=== PATIENT | male | born 1980 | race American Indian/Alaskan Native ===

== ENCOUNTER 2021-03-25 07:28 | Emergency (ER) | payer MEDICARE ==
[2021-03-25 07:40] VITALS: BP 135/83
[2021-03-25 08:30] LABS: Bilirubin,Urine MOD (Negative); Blood,Urine NEG (Negative); Color,Urine Amber (Yellow); Mucus,Urine 2+ /HPF
[2021-03-25 08:39] LABS: Ictotest,Urine Negative (Negative)
[2021-03-25 08:45] LABS: Basophils % (Auto) 0.6 % (0.0-1.8); Eosinophils # (Auto) 0.1 K/mm3 (0.0-0.4); Eosinophils % (Auto) 1.4 % (0.0-4.3); Hematocrit 43.2 % (35.5-45.6); Hemoglobin 14.5 gm/dl (11.8-15.2); Lymphocytes # (Auto) 1.2 K/mm3 (1.2-5.4); Lymphocytes % (Auto) 20.8 % (13.4-35.0); Mean Corpuscular HGB Conc 34 % (32-34); Mean Corpuscular Volume 93 fl (84-94); Monocytes # (Auto) 0.6 K/mm3 (0.0-0.8); Monocytes % (Auto) 10.5 % (0.0-7.3); Platelet Count 149 K/mm3 (140-440); Red Blood Count 4.66 M/mm3 (3.65-5.03); Red Cell Distribution Width 14.1 % (13.2-15.2)
[2021-03-25 09:03] LABS: BUN/Creatinine Ratio 10; Blood Urea Nitrogen 10 mg/dL (9-20); Calcium 8.9 mg/dL (8.4-10.2); Hemolysis Index 1
[2021-03-25 09:03] LABS: Amphetamine Screen,Urine Negative; Benzodiazepines Screen,Urine Negative; Methadone Screen,Urine Negative; Opiate Screen,Urine Negative
[2021-03-25 09:19] LABS: Cannabinoid Screen,Urine Positive; Cocaine Screen,Urine Positive
== END 2021-03-25 13:45 | disposition home or self-care (01) ==
LOC: ED 07:28
DX: R45.851 Suicidal ideations (principal); Z20.822 Contact with and (suspected) exposure to COVID-19; F20.9 Schizophrenia, unspecified; F17.200 Nicotine dependence, unspecified, uncomplicated; Z98.890 Other specified postprocedural states
CPT/HCPCS: 36415; 80048; 80307; 81001; 85025; 99284; U0003; 80320; G0480

== ENCOUNTER 2022-06-15 04:57 | Emergency (ER) | payer MEDICARE ==
[2022-06-15 06:12] LABS: Basophils % (Auto) 0.4 % (0.0-1.8); Eosinophils % (Auto) 0.3 % (0.0-4.3); Hematocrit 42.6 % (35.5-45.6); Hemoglobin 13.9 gm/dl (11.8-15.2); Lymphocytes # (Auto) 1.9 K/mm3 (1.2-5.4); Mean Corpuscular HGB Conc 33 % (32-34); Mean Corpuscular Volume 94 fl (84-94); Monocytes # (Auto) 0.6 K/mm3 (0.0-0.8); Monocytes % (Auto) 8.9 % (0.0-7.3); Platelet Count 195 K/mm3 (140-440); Red Blood Count 4.54 M/mm3 (3.65-5.03); Red Cell Distribution Width 14.4 % (13.2-15.2)
[2022-06-15 06:31] LABS: Blood Urea Nitrogen 18 mg/dL (9-20); Calcium 9.5 mg/dL (8.4-10.2); Hemolysis Index 12
[2022-06-15 06:32] LABS: BUN/Creatinine Ratio 26
[2022-06-15 06:43] LABS: Amphetamine Screen,Urine Negative; Benzodiazepines Screen,Urine Negative; Cannabinoid Screen,Urine Negative; Methadone Screen,Urine Negative; Opiate Screen,Urine Negative
[2022-06-15 06:51] LABS: Bacteria,Urine 1+ /HPF (Negative); Mucus,Urine FEW /HPF
[2022-06-15 06:52] LABS: Color,Urine Yellow (Yellow)
[2022-06-15 06:56] LABS: Cocaine Screen,Urine Positive
--- NOTE | 2022-06-15 12:27 | Consultation ---
History of Present Illness - Reason for Consult Consult date: 06/15/22 Reason for consult: SI - History of Present Psychiatric Illness The patient was seen today. He is cooperative, but difficult to follow at times. The patient endorses suicidal and homicidal thoughts. He says "yea I want to hurt other people, but mostly myself." He says he's been off his meds, he then says "only like 2 days." The patient says he takes depakote, lithium and zyprexa. He says he has bipolar and schizophrenia. He says "I don't like living." He then starts rambling "they trying to play me like I'm stupid, and want me to set people up." He says he is homeless because he left his assisted. He says "I'm not dumb." The patient endorses crack use. He denies hallucinations. PAST PSYCHIATRIC HISTORY: Diagnoses: schizophrenia, bipolar Suicide attempts or Self-harm behavior: Yes Prior psychiatric hospitalizations: Yes Substance Abuse history: Cocaine Previous psychiatric medications tried: zyprexa, lithium, depakote Outpatient treatment: Yes PAST MEDICAL HISTORY: None reported Family Psychiatric History: None reported or documented SOCIAL HISTORY Marital Status: Single Living Arrangements: assisted Employment Status: disabled Access to guns/weapons: Denies Education: History of Abuse:Denies Legal History: Denies REVIEW OF SYSTEMS Constitutional: Negative for weight loss ENT: Negative for stridor Respiratory: Negative for cough or hemoptysis All other systems reviewed and are negative MENTAL STATUS EXAMINATION General Appearance and Behavior: Age appropriate, wearing appropriate clothes, cooperative, polite with questioning, good eye contact Cooperation: cooperative Psychomotor Behavior: Psychomotor normal Mood: Depressed Affect and affective range: congruent with stated affect Thought Process: circumstantial Thought Content: SI Speech: Normal volume, Regular rate and rhythm Suicidal Ideation: Yes Homicidal Ideation: Yes Hallucination: Denies Delusions: Denies Impulse Control: Limited Insight and Judgment: Limited Memory: Intact Attention: distractive Orientation: Alert and oriented Diagnoses: Schizophrenia Treatment Plan [address] [place] 300mg PO q8h Depakote DR 125mg po BIS Olanzapine 5mg po daily Medical: per primary Disposition: recommend acute psychiatric inpatient treatment Will follow. Thanks Case staffed with Dr. Wick Medications and Allergies Allergies Allergy/AdvReac Type Severity Reaction Status Date / Time No Known Allergies Allergy Unverified 03/25/21 07:36 Mental Status Exam - Vital signs Last Vital Signs Temp 98.3 F 06/15/22 04:58 Pulse 78 06/15/22 04:58 Resp 18 06/15/22 04:58 BP 121/61 06/15/22 04:58 Pulse Ox 99 06/15/22 04:58 Results Result Diagrams: 06/15/22 05:38 06/15/22 05:38 Abnormal lab results 06/15/22 06/15/22 06/15/22 Range/Units 05:38 05:38 05:38 [place] % (Auto) (0.0-7.3) % Creatinine 0.7 L (0.8-1.3) mg/dL Urine WBC (Auto) (0.0-6.0) /HPF Salicylates < 0.3 L (2.8-20.0) mg/dL Acetaminophen 5.0 L (10.0-30.0) ug/mL 06/15/22 06/15/22 Range/Units 05:38 Unknown [place] % (Auto) 8.9 H (0.0-7.3) % Creatinine (0.8-1.3) mg/dL Urine WBC (Auto) 7.0 H (0.0-6.0) /HPF Salicylates (2.8-20.0) mg/dL Acetaminophen (10.0-30.0) ug/mL All other labs normal.
--- NOTE | 2022-06-15 14:46 | Emergency Department Report ---
ED General Adult HPI - General Chief complaint: Psych Stated complaint: SUICIDAL THOUGHTS PUI?: No Time Seen by Provider: 06/15/22 14:36 Source: patient Mode of arrival: Ambulatory Limitations: No Limitations - History of Present Illness Initial comments: This is a 41-year-old male with medical history of schizophrenia and also bipolar came in today with concerns of suicidal or homicidal ideations. Patient said that he really wants to hurt other people but mostly himself. According patient has been off his medication for about 2 days now. Patient said that he used to take Depakote lithium and also Zyprexa. He said that he would like to go to the rehab in the back of the hospital. Patient denies any other discomfort. Patient denies visual hallucination or tactile hallucination. Patient endorsed auditory hallucination but currently is not hearing anything. Patient stated the auditory hallucinations not giving him any commands. Patient current denies any fever chill night sweat dizziness blurred vision lightheadedness headache tinnitus ear pain runny nose sore throat loss of taste loss of smell chest pain palpitation short of breath cough abdominal pain nausea vomiting diarrhea constipation joint pain muscle pain new rash and heat or cold intolerance. - Related Data Previous Rx's Medication Instructions Recorded Last Taken Type Divalproex Dr [DepaKOTE DR] 125 mg PO BID #60 tablet 06/16/22 Unknown Rx Lecanto Carbonate 300 mg PO Q8H #90 06/16/22 Unknown Rx OLANZapine [Olanzapine] 5 mg PO DAILY #30 06/16/22 Unknown Rx Allergies Allergy/AdvReac Type Severity Reaction Status Date / Time No Known Allergies Allergy Unverified 03/25/21 07:36 ED Review of Systems ROS: Stated complaint: SUICIDAL THOUGHTS Other details as noted in HPI Comment: All other systems reviewed and negative ED Past Medical Hx - Past Medical History Previous Medical History?: Yes Hx Psychiatric Treatment: Yes (Schizophrenia, bipolar disorder) Additional medical history: Left leg injury - Surgical History Past Surgical History?: Yes Additional Surgical History: Left leg - Social History Smoking Status: Current Every Day Smoker Substance Use Type: None (Denies illicit drug use) - Medications Home Medications: Home Medications Medication Instructions Recorded Confirmed Last Taken Type Divalproex Dr [DepaKOTE DR] 125 mg PO BID #60 tablet 06/16/22 Unknown Rx Lecanto Carbonate 300 mg PO Q8H #90 06/16/22 Unknown Rx OLANZapine [Olanzapine] 5 mg PO DAILY #30 06/16/22 Unknown Rx ED Physical Exam - General Limitations: No Limitations General appearance: alert, in no apparent distress - Head Head exam: Present: atraumatic, normocephalic, normal inspection - Eye Eye exam: Present: normal appearance, PERRL, EOMI Pupils: Present: normal accommodation - ENT ENT exam: Present: normal exam, mucous membranes moist - Neck Neck exam: Present: normal inspection, full ROM - Respiratory Respiratory exam: Present: normal lung sounds bilaterally - Cardiovascular Cardiovascular Exam: Present: regular rate, normal rhythm, normal heart sounds - GI/Abdominal GI/Abdominal exam: Present: soft - Extremities Exam Extremities exam: Present: normal inspection, full ROM, normal capillary refill - Back Exam Back exam: Present: normal inspection, full ROM - Neurological Exam Neurological exam: Present: alert, oriented X3, CN II-XII intact - Psychiatric Psychiatric exam: Present: normal affect, normal mood - Skin Skin exam: Present: warm, normal color ED Course Vital Signs 06/15/22 06/15/22 06/16/22 04:58 13:59 10:16 Temperature 98.3 F 98.3 F Pulse Rate 78 69 Respiratory 18 18 Rate Blood Pressure 121/61 112/64 [Right] O2 Sat by Pulse 99 97 98 Oximetry 06/16/22 10:17 Temperature Pulse Rate Respiratory Rate Blood Pressure [Right] O2 Sat by Pulse 98 Oximetry ED Medical Decision Making - Lab Data Result diagrams: 06/15/22 05:38 06/15/22 05:38 - Medical Decision Making PATIENT WAS DISCHARGED BY MY [facility]LE[facility] TODAY, DR QUIÑONES. Critical care attestation.: If time is entered above; I have spent that time in minutes in the direct care of this critically ill patient, excluding procedure time. ED Disposition Clinical Impression: Schizophrenia Disposition: 01 HOME / SELF CARE / HOMELESS Is pt being admited?: No Does the pt Need Aspirin: No Condition: Stable Additional Instructions: OUTPATIENT MENTAL HEALTH RESOURCES [facility], [facility] Thad Diamond MD: [address] [place] [address], [address] [place] [address] [place], [place] [id number] [place] [facility]: [facility] [address] [place] [address] [place] [address] [phone] [facility]: [facility]: [address] [facility] [address] [place] [address] [place] [address] [facility] [id number] [place] [facility]: Jose Brunson MD: [id number] [facility] [place] [address] [facility] [id number] [facility]: [address] [place], [place] [id number] [phone] MD CRISIS AND ACCESS LINE: Prescriptions: Divalproex [Akil BLACK] 125 mg PO BID #60 tablet Lecanto Carbonate 300 mg PO Q8H #90 OLANZapine [Olanzapine] 5 mg PO DAILY #30 Referrals: PRIMARY CAREMD [Primary Care Provider] - 3-5 Days Time of Disposition: 15:33
[2022-06-15] MEDS: LITHIUM CARBONATE 300 MG CAP PO SCH ×2 (15:18→22:17)
[2022-06-15] MEDS: DIVALPROEX DR 125 MG TAB PO SCH ×2 (15:18→22:17)
[2022-06-16] MEDS: LITHIUM CARBONATE 300 MG CAP PO SCH (06:42)
--- NOTE | 2022-06-16 07:25 | Event Note ---
Date: 06/16/22 S: No events reported overnight O: Vital Signs - 8 hr 06/16/22 06/16/22 10:16 10:17 Temperature 98.3 F Pulse Rate 69 Respiratory 18 Rate Blood Pressure 112/64 [Right] O2 Sat by Pulse 98 98 Oximetry A: Schizophrenia P: Patient cleared by psych. Being discharged
--- NOTE | 2022-06-16 09:03 | Progress Note ---
Subjective - Reason for Consult Consult date: 06/16/22 Reason for consult: Schizophrenia - Chief Complaint Chief complaint: The patient was seen today. He is standing in the potter waiting on me. He smiles as he sees me approaching. The patient is calm and cooperative. He says he slept well. The patient denies SI/HI. He states "just hurting." He then says "my heart. I've been feeling like this since I was a kid. Dealing with a lot of hurt from my childhood." Discussed with the patient the need for on-going therapy. He denies hallucinations. The patient is asking how long can we hold him. He says "I'm trying to get back to the program behind the hospital." Inpatient psych treatment is no longer recommended for this patient. He can now be managed on an outpatient basis. Please see plan below. REVIEW OF SYSTEMS Constitutional: Negative for weight loss ENT: Negative for stridor Respiratory: Negative for cough or hemoptysis All other systems reviewed and are negative MENTAL STATUS EXAMINATION General Appearance and Behavior: Age appropriate, wearing appropriate clothes, cooperative, polite with questioning, good eye contact Cooperation: cooperative Psychomotor Behavior: Psychomotor normal Mood: Depressed Affect and affective range: congruent with stated affect Thought Process: goal directed Thought Content: None Speech: Normal volume, Regular rate and rhythm Suicidal Ideation: Denies Homicidal Ideation: Denies Hallucination: Denies Delusions: Denies Impulse Control: Limited Insight and Judgment: Limited Memory: Intact Attention: attentive Orientation: Alert and oriented Diagnoses: Schizophrenia Cocaine Use Disorder Treatment Plan d/c [address] [place] 300mg PO q8h Depakote DR 125mg po BIS Olanzapine 5mg po daily Medical: per primary Disposition: Do not recommend acute psychiatric inpatient treatment. The patient understands that if SI/HI or any fear of endangerment arise he is to seek immediate assistance. The patient should abstain from all illicit drug use He should follow up in 7 to 14 days with outpatient psych upon discharge The personal injury attorney to further discuss safety plan, and provide the patient with all necessary outpatient resources including drug rehab, and CBT. Will sign off. Thanks [facility] staffed with Dr. Wick Mental Status Exam - Vital signs Last Vital Signs Temp 98.3 F 06/15/22 04:58 Pulse 78 06/15/22 04:58 Resp 18 06/15/22 04:58 BP 121/61 06/15/22 04:58 Pulse Ox 97 06/15/22 13:59
[2022-06-16] MEDS: DIVALPROEX DR 125 MG TAB PO SCH (09:51)
[2022-06-16 10:17] VITALS: BP 112/64
== END 2022-06-16 12:09 | disposition home or self-care (01) ==
LOC: ED 04:57
DX: F20.9 Schizophrenia, unspecified (principal); F17.200 Nicotine dependence, unspecified, uncomplicated; Z20.822 Contact with and (suspected) exposure to COVID-19
CPT/HCPCS: 36415; 80048; 80178; 80307; 81001; 85025; 99284; U0003; 80320; G0480